=== PATIENT | female | born 1985 | race Caucasian/White ===

== ENCOUNTER 2018-12-04 20:06 | Outpatient (CLI) | payer SELFPAY ==
[2018-12-04 22:30] VITALS: BP 108/65
--- NOTE | 2018-12-05 03:01 | Ultrasound Report ---
US OB BPP wo non-stress INDICATION / CLINICAL INFORMATION: decrease movement. COMPARISON: None available. FINDINGS: BPP is 8 out of 8. heart rate is 135. Gestational age is 34 weeks 2 days. SIVAN is 15.5. Cervix l ength is 4.67. Estimated weight is 2203 g. Head circumference is 29.3 equaling 32 weeks 2 days gestational age Abdominal circumference is 30.3 equaling 34 weeks 2 days Femur length is 6.5 equaling 33 weeks 3 days IMPRESSION: Single live fetus of approximately 34 weeks 2 days gestational age. SIVAN is 15.5, heart rate is 135. Estimated weight is 2203 g. BPP is 8 out of a Signer Name: Kapil Cordoba MD FACR Signed: 12/05/2018 2:56 AM Workstation Name: [id number]
--- NOTE | 2018-12-05 03:05 | Ultrasound Report ---
US OB >= 14 weeks Fetus INDICATION / CLINICAL INFORMATION: decrease movement. COMPARISON: None available. FINDINGS: A single live fetus of approximately 34 weeks 2 days gestational age is seen in cephalic presentation . SIVAN is 15.5, heart rate 135 and estimated birthweight 2203 g. BPD is 7.70 equalling 31 weeks 0 days Head circumference is 29.3 equaling 32 weeks 2 days Abdominal circumference is 30.3 equaling 34 weeks 2 days Femur length is 6.5 correlating 33 weeks 3 days IMPRESSION: Single live fetus of approximately 34 weeks 2 days gestational age in cephalic presentation. SIVAN is 1 5.5, heart rate 135 and estimated weight 2203 g. BPP is 8 out of 8 Signer Name: Kapil Cordoba MD FACR Signed: 12/05/2018 3:01 AM Workstation Name: [id number]
== END 2018-12-05 01:40 | disposition home or self-care (01) ==
LOC: TRG 20:06
PROVIDERS: ATTEND Obstetrics & Gynecology
DX: O47.03 False labor before 37 completed weeks of gestation, third trimester (principal); O24.419 Gestational diabetes mellitus in pregnancy, unspecified control; Z3A.34 34 weeks gestation of pregnancy
CPT/HCPCS: 59025; 76805; 76819; 82962